=== PATIENT | male | born 1965 | race Hispanic/Latino ===

== ENCOUNTER 2023-06-16 05:04 | Observation (INO) | payer BC ==
[2023-06-13 11:44] LABS: BASOPHILS # (AUTO) 0.04 K/uL (0.00-0.20); BASOPHILS % (AUTO) 0.4 % (0.0-5.0); EOSINOPHILS # (AUTO) 0.11 K/uL (0.00-0.70); EOSINOPHILS % (AUTO) 1.2 % (0.0-8.0); HEMATOCRIT 40.8 % (42-54); IMMATURE GRANULOCYTE ABSOLUTE 0.06 K/uL (0-1); LYMPHOCYTES # (AUTO) 2.4 K/uL (1.0-4.8); LYMPHOCYTES % (AUTO) 25.7 % (21.0-51.0); MEAN CORPUSCULAR HEMOGLOBIN 28.9 pg (27.0-33.0); MEAN CORPUSCULAR HGB CONC 32.6 g/dL (32.0-36.0); MEAN CORPUSCULAR VOLUME 88.7 fL (79-99); MONOCYTES # (AUTO) 0.8 K/uL (0.1-1.0); MONOCYTES % (AUTO) 8.5 % (3.0-13.0); NEUTROPHILS # (AUTO) 5.9 K/uL (1.8-7.7); NEUTROPHILS % (AUTO) 63.5 % (40.0-77.0); PLATELET COUNT (AUTO) 263 K/uL (130-400); RED CELL DISTRIBUTION WIDTH 13.2 % (11.0-15.5); WHITE BLOOD COUNT (AUTO) 9.2 K/uL (4.8-10.8)
[2023-06-13 11:55] LABS: INR 0.96 (0.85-1.15); PROTHROMBIN TIME 11.2 SEC (9.6-11.6)
[2023-06-13 11:56] LABS: PARTIAL THROMBOPLASTIN TIME 28.8 SEC (26.3-35.5)
[2023-06-13 12:08] VITALS: BP 145/91; PULSE 90; RESP 19
[2023-06-13 12:23] LABS: CREATININE 1.5 mg/dL (0.5-1.5); POTASSIUM 3.8 mmol/L (3.5-5.1)
[~2023-06-16] VITALS: Ht 188 cm; Wt 169.6 kg
[2023-06-16] VITALS (27 sets, daily range): BP systolic 117–156; BP diastolic 66–86; PULSE 63–107; RESP 15–20; O2SAT 96–97
[~2023-06-16 05:04] MED LIST: AMLO-258 PO; LOSA1TAB54 PO
[2023-06-16] MEDS ORDERED: CEFAZOLIN SODIUM 1 GM VIAL ONE ×2 (05:17→06:47)
[2023-06-16] MEDS ORDERED: CEFAZOLIN SODIUM 2 GM VIAL ONE (05:17)
[2023-06-16] MEDS ORDERED: LACTATED RINGERS 1000ML 1,000 ML IV ONE (05:17)
[2023-06-16] MEDS ORDERED: WARF7.5T6 PO (05:35)
[2023-06-16] MEDS ORDERED: GENTAMICIN SULFATE 80 MG/2 ML VIAL ONE (06:47)
[2023-06-16] MEDS ORDERED: TRANEXAMIC ACID 1000MG/10ML ONE ×2 (06:47→08:43)
[2023-06-16] MEDS ORDERED: SUCCINYLCHOLINE 200MG/10ML SYR ONE (06:59)
[2023-06-16] MEDS ORDERED: LIDOCAINE PF 100MG/5ML (2%) SYRINGE 5ML ONE (06:59)
[2023-06-16] MEDS ORDERED: ONDANSETRON 4MG INJ ONE ×2 (06:59→07:05)
[2023-06-16] MEDS ORDERED: NEOSTIGMINE 5MG/5ML SYR IV ONE (07:00)
[2023-06-16] MEDS ORDERED: FENTANYL CITRATE PF 50 MCG/1 ML 2ML VIAL ONE ×2 (07:00→09:36)
[2023-06-16] MEDS ORDERED: DEXAMETHASONE SOD PHOSPHATE 10MG/ML 1ML VIAL ONE (07:00)
[2023-06-16] MEDS ORDERED: GLYCOPYRROLATE 1 MG/5 ML SYRINGE ONE (07:00)
[2023-06-16] MEDS ORDERED: MIDAZOLAM HCL 1 MG/ML 2ML VIAL ONE ×3 (07:00→08:20)
[2023-06-16] MEDS ORDERED: PROPOFOL 10 MG/ML 20ML VIAL IV ONE (07:00)
[2023-06-16] MEDS ORDERED: ROCURONIUM 10MG/1ML SYR 10 MG/ML ML ONE (07:00)
[2023-06-16] MEDS ORDERED: 0.9%NACL 100ML 48.45 ML, ROPIVACAINE 0.5% 5MG/ML 30ML 246.25 MG, KETOROLAC TROMETHAMINE... IV PRN ×5 (07:30)
[2023-06-16] MEDS ORDERED: CEFAZOLIN SODIUM 3 GM VIAL IVPB ONE (08:29)
[2023-06-16] MEDS ORDERED: ACETAMINOPHEN 325 MG TAB PO PRN ×2 (12:30)
[2023-06-16] MEDS ORDERED: BENZOCAINE/MENTH/CETYLPYRD CL 1 EACH LOZENGE MM PRN (12:30)
[2023-06-16] MEDS ORDERED: HYDROMORPHONE PCA 10 MG/50 ML 50 ML IV PRN (12:30)
[2023-06-16] MEDS ORDERED: DIPHENOXYLATE HCL/ATROPINE 2.5/0.025 MG TAB PO PRN (12:30)
[2023-06-16] MEDS ORDERED: ONDANSETRON 4MG INJ IVP PRN (12:30)
[2023-06-16] MEDS ORDERED: DiphenhydrAMINE HCL 50 MG/ML VIAL IM PRN (12:30)
[2023-06-16] MEDS ORDERED: LACTULOSE 20 GM/30 ML UDCUP PO PRN (12:30)
[2023-06-16] MEDS ORDERED: DIPHENHYDRAMINE HCL 25 MG CAPSULE PO PRN (12:30)
[2023-06-16] MEDS ORDERED: ZINC OXIDE OINT 30GM TUBE TP PRN (12:30)
[2023-06-16] MEDS ORDERED: MAG/ALUM/SIMETH 30 ML UDCUP PO PRN (12:30)
[2023-06-16] MEDS ORDERED: CEFAZOLIN SODIUM 3 GM in DEXTROSE 5%-WATER 100 ML IVPB SCH (14:30)
[2023-06-16] MEDS ORDERED: COMPOUND IV REFRIGERATED 1 EACH IVSOLN MISC PRN (15:00)
[2023-06-16] MEDS ORDERED: WARFARIN SODIUM 7.5 MG TAB PO ONE (16:00)
[2023-06-16] MEDS: CEFAZOLIN SODIUM 3 GM in DEXTROSE 5%-WATER 100 ML IVPB SCH ×2 (16:14→23:27)
[2023-06-16] MEDS: 0.9%NACL 1000ML 1,000 ML IV SCH ×2 (16:21→22:45)
[2023-06-16] MEDS ORDERED: CEFAZOLIN SODIUM 2 GM VIAL IVPB SCH (16:30)
[2023-06-16] MEDS ORDERED: NON-FORMULARY MEDICATION 1 EACH (Amlodipine Besylate 10 MG) PO SCH (21:00)
[2023-06-17 03:52] VITALS: BP 118/69; PULSE 65; RESP 20
[2023-06-17 06:09] LABS: BASOPHILS # (AUTO) 0.02 K/uL (0.00-0.20); BASOPHILS % (AUTO) 0.1 % (0.0-5.0); HEMATOCRIT 36.8 % (42-54); IMMATURE GRANULOCYTE ABSOLUTE 0.14 K/uL (0-1); LYMPHOCYTES % (AUTO) 11.6 % (21.0-51.0); MEAN CORPUSCULAR HEMOGLOBIN 28.9 pg (27.0-33.0); MEAN CORPUSCULAR HGB CONC 32.6 g/dL (32.0-36.0); MEAN CORPUSCULAR VOLUME 88.7 fL (79-99); MONOCYTES # (AUTO) 1.5 K/uL (0.1-1.0); MONOCYTES % (AUTO) 8.7 % (3.0-13.0); NEUTROPHILS # (AUTO) 13.6 K/uL (1.8-7.7); NEUTROPHILS % (AUTO) 78.8 % (40.0-77.0); PLATELET COUNT (AUTO) 272 K/uL (130-400); RED BLOOD CELL COUNT(AUTO) 4.15 MIL/uL (4.50-6.20); RED CELL DISTRIBUTION WIDTH 13.1 % (11.0-15.5); WHITE BLOOD COUNT (AUTO) 17.3 K/uL (4.8-10.8)
[2023-06-17 06:30] LABS: CREATININE 1.5 mg/dL (0.5-1.5); POTASSIUM 3.8 mmol/L (3.5-5.1)
[2023-06-17 06:33] LABS: INR 1.06 (0.85-1.15); PROTHROMBIN TIME 12.3 SEC (9.6-11.6)
[2023-06-17 07:45] VITALS: O2SAT 100
[2023-06-17 08:00] VITALS: BP 121/76; PULSE 98; RESP 17
[2023-06-17] MEDS ORDERED: WARFARIN SODIUM 10 MG TABLET PO SCH (08:00)
[2023-06-17] MEDS ORDERED: WARFARIN SODIUM 10 MG TABLET PO ONE (08:00)
[2023-06-17] MEDS: 0.9%NACL 1000ML 1,000 ML IV SCH (08:30)
[2023-06-17] MEDS ORDERED: LOSARTAN 100 MG TABLET PO SCH (09:00)
[2023-06-17] MEDS ORDERED: HYDROCHLOROTHIAZIDE 25 MG TABLET PO SCH (09:00)
[2023-06-17] MEDS ORDERED: AMLODIPINE 5 MG TAB PO SCH ×2 (09:00→21:00)
[2023-06-17] MEDS ORDERED: NON-FORMULARY MEDICATION 1 EACH (Losartan/Hydrochlorothiazide (Losartan-Hctz 100-25 mg Tab PO SCH (09:00)
[2023-06-17] MEDS: TRAMADOL HCL 50 MG TABLET PO PRN ×2 (09:34→14:31)
[2023-06-17 12:00] VITALS: BP 106/67; PULSE 101; RESP 17
== END 2023-06-17 15:30 | disposition home or self-care (01) ==
LOC: DAH 05:04 → DAHIP 05:05 → 4CH 12:15
PROVIDERS: ADMIT Orthopaedic Surgery; ATTEND Orthopaedic Surgery
DX: M17.12 Unilateral primary osteoarthritis, left knee (principal); I12.9 Hypertensive chronic kidney disease with stage 1 through stage 4 chronic kidney disease, or unspecified chronic kidney disease; N18.30 Chronic kidney disease, stage 3 unspecified; E78.5 Hyperlipidemia, unspecified; E66.01 Morbid (severe) obesity due to excess calories; Z96.652 Presence of left artificial knee joint; Z79.899 Other long term (current) drug therapy
CPT/HCPCS: 80048 ×2; 85025 ×2; 85610 ×2; 85730 ×2; 36415 ×2; 87641; 27447; 96365; 96366 ×3; 96368; 97161; 97012; 97116 ×2; 83036; 97039; G0378 ×23; G0379; J7120 ×2; A4215 ×2; A4649 ×4; J0690 ×5; J3010 ×2; J3490 ×3; J1170; J0330; J1100; J2710; J2001; J1580; J2250 ×3; J7060; J2704; J2405 ×2; A6223; C1763 ×2; C1776; A5120; A4223; A4222; A4221; A4663; A6450; J7030